=== PATIENT | male | born 1995 | race American Indian/Alaskan Native ===

== ENCOUNTER 2019-05-14 04:04 | Emergency (ER) | payer SELFPAY ==
--- NOTE | 2019-05-14 05:11 | Emergency Department Report ---
ED Abdominal Pain HPI - General Chief Complaint: Alcohol Stated Complaint: AMS/MH EVAL Time Seen by Provider: 05/14/19 05:02 Source: patient, family Mode of arrival: Stretcher Limitations: No Limitations - Related Data Allergies Allergy/AdvReac Type Severity Reaction Status Date / Time No Known Allergies Allergy Unverified 05/14/19 04:17 ED Review of Systems ROS: Stated complaint: AMS/MH EVAL Other details as noted in HPI ED Past Medical Hx - Past Medical History Previous Medical History?: Yes Hx Renal Disease: Yes (Nephrotic Syndrome) - Surgical History Past Surgical History?: No - Social History Smoking Status: Unknown if ever smoked Substance Use Type: Alcohol, Other ED Physical Exam - General Limitations: No Limitations ED Course Vital Signs 05/14/19 04:17 Temperature 98 F Pulse Rate 96 H Respiratory 18 Rate Blood Pressure 134/93 O2 Sat by Pulse 99 Oximetry Critical care attestation.: If time is entered above; I have spent that time in minutes in the direct care of this critically ill patient, excluding procedure time. ED Disposition Condition: Stable Referrals: WILDER MCKEON MD [Primary Care Provider] - 3-5 Days
--- NOTE | 2019-05-14 05:22 | Emergency Department Report ---
<DRAKE MANCERA - Last Filed: 05/14/19 05:40> ED Altered Mental Status HPI - General Chief Complaint: Alcohol Stated Complaint: AMS/MH EVAL Time Seen by Provider: 05/14/19 05:02 Source: patient, family Mode of arrival: Stretcher Limitations: No Limitations - History of Present Illness Initial Comments: Patient is a 23-year-old F [place] male who is presenting with altered mental status. According to a friend who called paramedics patient was drinking and taking Xanax which she is done before but he became more altered than normal. Patient presented with erratic behavior was altered from intoxication. No other information is noted at this time. - Related Data Previous Rx's Medication Instructions Recorded Last Taken Type Sertraline [Zoloft] 50 mg PO QDAY #30 tablet 05/15/19 Unknown Rx hydrOXYzine PAMOATE [Vistaril] 50 mg PO Q6H PRN #90 capsule 05/15/19 Unknown Rx Allergies Allergy/AdvReac Type Severity Reaction Status Date / Time No Known Allergies Allergy Verified 05/15/19 01:24 ED Review of Systems Comment: All other systems reviewed and negative ED Past Medical Hx - Past Medical History Previous Medical History?: Yes Hx Renal Disease: Yes (Nephrotic Syndrome) - Surgical History Past Surgical History?: No - Social History Smoking Status: Unknown if ever smoked Substance Use Type: Alcohol, Other - Medications Home Medications: Home Medications Medication Instructions Recorded Confirmed Last Taken Type Sertraline [Zoloft] 50 mg PO QDAY #30 tablet 05/15/19 Unknown Rx hydrOXYzine PAMOATE [Vistaril] 50 mg PO Q6H PRN #90 capsule 05/15/19 Unknown Rx ED Physical Exam - General Limitations: No Limitations General appearance: lethargic - Head Head exam: Present: atraumatic, normocephalic - Eye Eye exam: Present: normal appearance - ENT ENT exam: Present: mucous membranes moist - Neck Neck exam: Present: normal inspection - Respiratory Respiratory exam: Present: normal lung sounds bilaterally. Absent: respiratory distress, wheezes, rhonchi - Cardiovascular Cardiovascular Exam: Present: regular rate, normal rhythm, normal heart sounds. Absent: systolic murmur, diastolic murmur, rubs, gallop - GI/Abdominal GI/Abdominal exam: Present: soft, normal bowel sounds - Rectal Rectal exam: Present: deferred - Extremities Exam Extremities exam: Present: normal inspection - Back Exam Back exam: Present: normal inspection - Neurological Exam Neurological exam: Present: altered - Skin Skin exam: Present: warm, dry, intact, normal color. Absent: rash ED Course - Reevaluation(s) Reevaluation #1: 05/14/19 05:22 Was the patient fell asleep he was just minimally arousable with sternal rub. He would grab at my hand with sternal rub. Patient had a large amount of secretions in the back of his throat and his O2 sat dropped into the low 80s. Patient was suctioned and nasal trumpet was placed. O2 sat is 100% after these 2 maneuvers. 05/14/19 05:23 Accu-Chek is within normal limits Reevaluation #2: 05/14/19 05:40 Patient will be signed out to the oncoming ER physician to be monitored and the patient likely will be discharged after sobriety ED Disposition Clinical Impression: Benzodiazepine abuse Alcohol intoxication Qualifiers: Complication of substance-induced condition: with delirium Qualified Code(s): F10.921 - Alcohol use, unspecified with intoxication delirium Disposition: DC-01 TO HOME OR SELFCARE Condition: Fair Prescriptions: hydrOXYzine PAMOATE [Vistaril] 50 mg PO Q6H PRN #90 capsule PRN Reason: Anxiety Sertraline [Zoloft] 50 mg PO QDAY #30 tablet Referrals: WILDER MCKEON MD [Primary Care Provider] - 3-5 Days <CATALINO PATEL - Last Filed: 05/16/19 06:24> ED Review of Systems ROS: Stated complaint: AMS/MH EVAL Other details as noted in HPI ED Course Vital Signs 05/14/19 05/14/19 05/14/19 04:17 04:23 08:02 Temperature 98 F Pulse Rate 96 H 112 H Respiratory 18 20 16 Rate Blood Pressure 134/93 Blood Pressure 156/104 [Left] O2 Sat by Pulse 99 100 Oximetry 05/14/19 05/14/19 05/14/19 13:31 20:00 20:10 Temperature 98.0 F Pulse Rate 89 94 H Respiratory 16 18 18 Rate Blood Pressure Blood Pressure 137/83 126/91 [Left] O2 Sat by Pulse 99 98 98 Oximetry 05/14/19 05/15/19 05/15/19 20:14 01:55 10:34 Temperature 97.7 F 97.7 F 98.0 F Pulse Rate 77 87 88 Respiratory 16 18 16 Rate Blood Pressure Blood Pressure 112/70 129/87 125/96 [Left] O2 Sat by Pulse 95 100 98 Oximetry - Lab Data Result diagrams: 05/14/19 12:56 05/14/19 12:56 Lab Results 05/14/19 05/14/19 05/14/19 Range/Units 05:28 05:46 11:42 WBC (4.5-11.0) K/mm3 RBC (3.65-5.03) M/mm3 Hgb (11.8-15.2) gm/dl Hct (35.5-45.6) % MCV (84-94) fl MCH (28-32) pg MCHC (32-34) % RDW (13.2-15.2) % Plt Count (140-440) K/mm3 Lymph % (Auto) (13.4-35.0) % [place] % (Auto) (0.0-7.3) % Eos % (Auto) (0.0-4.3) % Baso % (Auto) (0.0-1.8) % Lymph # (1.2-5.4) K/mm3 [place] # (0.0-0.8) K/mm3 Eos # (0.0-0.4) K/mm3 Baso # (0.0-0.1) K/mm3 Seg Neutrophils % (40.0-70.0) % Seg Neutrophils # (1.8-7.7) K/mm3 Sodium (137-145) mmol/L Potassium (3.6-5.0) mmol/L Chloride (98-107) mmol/L Carbon Dioxide (22-30) mmol/L Anion Gap mmol/L BUN (9-20) mg/dL Creatinine (0.8-1.5) mg/dL Estimated GFR ml/min BUN/Creatinine Ratio % Glucose (75-100) mg/dL POC Glucose 122 H (70-105) Calcium (8.4-10.2) mg/dL Urine Color Straw (Yellow) Urine Turbidity Clear (Clear) Urine pH 5.0 (5.0-7.0) Ur Specific Gordon 1.009 (1.003-1.030) Urine Protein 30 mg/dl (Negative) mg/dL Urine Glucose (UA) Neg (Negative) mg/dL Urine Ketones Neg (Negative) mg/dL Urine Blood Sm (Negative) Urine Nitrite Neg (Negative) Urine Bilirubin Neg (Negative) Urine Urobilinogen < 2.0 (<2.0) mg/dL Ur Leukocyte Esterase Neg (Negative) Urine WBC (Auto) < 1.0 (0.0-6.0) /HPF Urine RBC (Auto) 9.0 (0.0-6.0) /HPF Uric Acid Crystals Few Urine Mucus Few /HPF Salicylates (2.8-20.0) mg/dL Urine Opiates Screen Urine Methadone Screen Acetaminophen (10.0-30.0) ug/mL Ur Barbiturates Screen Ur Phencyclidine Scrn Ur Amphetamines Screen U Benzodiazepines Scrn Urine Cocaine Screen U Marijuana (THC) Screen Drugs of Abuse Note Plasma/Serum Alcohol 0.24 H (0-0.07) % 05/14/19 05/14/19 05/14/19 Range/Units 12:56 12:56 12:56 WBC 6.3 (4.5-11.0) K/mm3 RBC 5.37 H (3.65-5.03) M/mm3 Hgb 16.1 H (11.8-15.2) gm/dl Hct 47.7 H (35.5-45.6) % MCV 89 (84-94) fl MCH 30 (28-32) pg MCHC 34 (32-34) % RDW 13.3 (13.2-15.2) % Plt Count 252 (140-440) K/mm3 Lymph % (Auto) 14.8 (13.4-35.0) % [place] % (Auto) 9.5 H (0.0-7.3) % Eos % (Auto) 0.2 (0.0-4.3) % Baso % (Auto) 0.2 (0.0-1.8) % Lymph # 0.9 L (1.2-5.4) K/mm3 [place] # 0.6 (0.0-0.8) K/mm3 Eos # 0.0 (0.0-0.4) K/mm3 Baso # 0.0 (0.0-0.1) K/mm3 Seg Neutrophils % 75.3 H (40.0-70.0) % Seg Neutrophils # 4.8 (1.8-7.7) K/mm3 Sodium 139 (137-145) mmol/L Potassium 5.5 H (3.6-5.0) mmol/L Chloride 100.5 (98-107) mmol/L Carbon Dioxide 24 (22-30) mmol/L Anion Gap 20 mmol/L BUN 7 L (9-20) mg/dL Creatinine 0.7 L (0.8-1.5) mg/dL Estimated GFR > 60 ml/min BUN/Creatinine Ratio 10 % Glucose 101 H (75-100) mg/dL POC Glucose (70-105) Calcium 9.1 (8.4-10.2) mg/dL Urine Color (Yellow) Urine Turbidity (Clear) Urine pH (5.0-7.0) Ur Specific Gordon (1.003-1.030) Urine Protein (Negative) mg/dL Urine Glucose (UA) (Negative) mg/dL Urine Ketones (Negative) mg/dL Urine Blood (Negative) Urine Nitrite (Negative) Urine Bilirubin (Negative) Urine Urobilinogen (<2.0) mg/dL Ur Leukocyte Esterase (Negative) Urine WBC (Auto) (0.0-6.0) /HPF Urine RBC (Auto) (0.0-6.0) /HPF Uric Acid Crystals Urine Mucus /HPF Salicylates < 0.3 L (2.8-20.0) mg/dL Urine Opiates Screen Urine Methadone Screen Acetaminophen (10.0-30.0) ug/mL Ur Barbiturates Screen Ur Phencyclidine Scrn Ur Amphetamines Screen U Benzodiazepines Scrn Urine Cocaine Screen U Marijuana (THC) Screen Drugs of Abuse Note Plasma/Serum Alcohol (0-0.07) % 05/14/19 05/14/19 Range/Units 12:56 Unknown WBC (4.5-11.0) K/mm3 RBC (3.65-5.03) M/mm3 Hgb (11.8-15.2) gm/dl Hct (35.5-45.6) % MCV (84-94) fl MCH (28-32) pg MCHC (32-34) % RDW (13.2-15.2) % Plt Count (140-440) K/mm3 Lymph % (Auto) (13.4-35.0) % [place] % (Auto) (0.0-7.3) % Eos % (Auto) (0.0-4.3) % Baso % (Auto) (0.0-1.8) % Lymph # (1.2-5.4) K/mm3 [place] # (0.0-0.8) K/mm3 Eos # (0.0-0.4) K/mm3 Baso # (0.0-0.1) K/mm3 Seg Neutrophils % (40.0-70.0) % Seg Neutrophils # (1.8-7.7) K/mm3 Sodium (137-145) mmol/L Potassium (3.6-5.0) mmol/L Chloride (98-107) mmol/L Carbon Dioxide (22-30) mmol/L Anion Gap mmol/L BUN (9-20) mg/dL Creatinine (0.8-1.5) mg/dL Estimated GFR ml/min BUN/Creatinine Ratio % Glucose (75-100) mg/dL POC Glucose (70-105) Calcium (8.4-10.2) mg/dL Urine Color (Yellow) Urine Turbidity (Clear) Urine pH (5.0-7.0) Ur Specific Gordon (1.003-1.030) Urine Protein (Negative) mg/dL Urine Glucose (UA) (Negative) mg/dL Urine Ketones (Negative) mg/dL Urine Blood (Negative) Urine Nitrite (Negative) Urine Bilirubin (Negative) Urine Urobilinogen (<2.0) mg/dL Ur Leukocyte Esterase (Negative) Urine WBC (Auto) (0.0-6.0) /HPF Urine RBC (Auto) (0.0-6.0) /HPF Uric Acid Crystals Urine Mucus /HPF Salicylates (2.8-20.0) mg/dL Urine Opiates Screen Presumptive negative Urine Methadone Screen Presumptive negative Acetaminophen < 5.0 L (10.0-30.0) ug/mL Ur Barbiturates Screen Presumptive negative Ur Phencyclidine Scrn Presumptive negative Ur Amphetamines Screen Presumptive negative U Benzodiazepines Scrn Presumptive positive Urine Cocaine Screen Presumptive negative U Marijuana (THC) Screen Presumptive negative Drugs of Abuse Note Disclamer Plasma/Serum Alcohol (0-0.07) % - Medical Decision Making This patient was signed out to me by the previous ER physician, my colleague, to follow-up on the patient's sobriety and assess for his ability for discharge. At this point the patient is awake, alert, and appears sober. However, the patient has spoken to his nurse, 1 of the ER techs, and then to myself, and has repeatedly said that he took the for Xanax and drank the alcohol last night because he wants to kill himself. When asked why he is feeling depressed or why he is feeling suicidal, the patient says "that is personal and I do not want to tell you." The patient says "I want to see a psychiatrist, I want to get some help." For this reason, the patient has been made a 1013. A consult for mental health assessment has been placed. The patient's blood alcohol level should be under the legal limit at this point and his urine drug screen was negative. The rest of his blood work has been ordered for medical clearance. Critical care attestation.: If time is entered above; I have spent that time in minutes in the direct care of this critically ill patient, excluding procedure time. ED Disposition Is pt being admited?: No
[2019-05-14 12:02] LABS: Bilirubin,Urine NEG (Negative); Blood,Urine SM (Negative); Color,Urine Straw (Yellow); Mucus,Urine FEW /HPF; Urobilinogen,Urine < 2.0 mg/dL (<2.0); WBC,Urine < 1.0 /HPF (0.0-6.0)
[2019-05-14 13:28] LABS: Basophils % (Auto) 0.2 % (0.0-1.8); Eosinophils % (Auto) 0.2 % (0.0-4.3); Hematocrit 47.7 % (35.5-45.6); Hemoglobin 16.1 gm/dl (11.8-15.2); Lymphocytes # (Auto) 0.9 K/mm3 (1.2-5.4); Lymphocytes % (Auto) 14.8 % (13.4-35.0); Mean Corpuscular HGB Conc 34 % (32-34); Mean Corpuscular Volume 89 fl (84-94); Monocytes # (Auto) 0.6 K/mm3 (0.0-0.8); Monocytes % (Auto) 9.5 % (0.0-7.3); Platelet Count 252 K/mm3 (140-440); Red Blood Count 5.37 M/mm3 (3.65-5.03); Red Cell Distribution Width 13.3 % (13.2-15.2)
[2019-05-14 13:44] LABS: BUN/Creatinine Ratio 10; Blood Urea Nitrogen 7 mg/dL (9-20); Calcium 9.1 mg/dL (8.4-10.2); Hemolysis Index 8
[2019-05-14] MEDS ORDERED: SODIUM POLYSTYRENE 15 GM/60 ML ORAL LIQD PO ONE (14:16)
[2019-05-14 14:42] LABS: Amphetamine Screen,Urine PRESUMPTIVE NEGATIVE; Cannabinoid Screen,Urine PRESUMPTIVE NEGATIVE; Cocaine Screen,Urine PRESUMPTIVE NEGATIVE; Methadone Screen,Urine PRESUMPTIVE NEGATIVE; Opiate Screen,Urine PRESUMPTIVE NEGATIVE
[2019-05-14 14:55] LABS: Benzodiazepines Screen,Urine PRESUMPTIVE POSITIVE
[2019-05-15] MEDS ORDERED: diphenhydrAMINE 25 MG CAP PO ONE ×2 (01:17)
[2019-05-15 10:36] VITALS: BP 125/96
--- NOTE | 2019-05-15 13:13 | Consultation ---
History of Present Illness - Reason for Consult Consult date: 05/15/19 Reason for consult: Psych eval - Chief Complaint Chief complaint: Anxious and depressed - History of Present Psychiatric Illness The patient is a 23yo single employed [employer] with history of Anxiety disorder. Per ED note, he presented with altered mental status. According to a friend who called paramedics patient was drinking and taking Xanax which he has done before but he became more altered than normal. Patient presented with erratic behavior was altered from intoxication. Psychiatry consult requested to evaluate and recommend disposition. In my interview with the patient, he reports feeling anxious, depressed and admits to self-medicate with Xanax plus/minus alcohol. He reports not sleeping well at night and his appetite is decreased. In the past he took Vistaril which he found beneficial for his anxiety. Patient denies panic attacks, recurrent nightmares or flashbacks. Patient denies symptoms suggestive of OCD or PTSD. Patient denies hallucinations, paranoia, thought interference and no features suggestive of hypomania or gerson. He completely denies suicidal or homicidal thoughts. He feels safe going home. PAST PSYCHIATRIC HISTORY: Diagnoses: Anxiety disorder Suicide attempts or Self-harm behavior: yes Prior psychiatric hospitalizations: no Substance Abuse history: Patient denies Previous psychiatric medications tried: Vistaril Outpatient treatment: no Family Psychiatric History None reported or documented SOCIAL HISTORY Marital Status: Single Living Arrangements: with brother Employment Status: employed Access to guns/weapons: Patient denies Education: high school History of Abuse: Patient denies Legal History: Patient denies ROS: Constitutional: Negative for weight loss ENT: Negative for stridor Respiratory: Negative for cough or hemoptysis All other systems reviewed and are negative MENTAL STATUS General Appearance and Behavior: age appropriate, good eye contact, cooperative with questioning and polite Cooperation: Cooperative Psychomotor Behavior: within normal limits Mood: OK Affect and affective range: Congruent with stated mood Thought Process: Fluent/Logical and Goal-directed Thought Content: Within reality Speech: Normal volume and Regular rate and rhythm Intellectual Functioning Average Suicidal Ideation: Denies SI Homicidal Ideation: Denies HI Impulse Control: intact Insight and Judgment: normal insight and judgment Memory: Normal Attention: Normal Orientation: alert and oriented Diagnoses Major depressive disorder, recurrent moderate episode Anxiety disorder, unspecified Alcohol and Benzodiazepine use disorder RECOMMENDATIONS MEDICATIONS: Zoloft 50mg qd for depression and Vistaril 50mg q6h prn anxiety Risks, benefits and alternatives of medications discussed with the patient, q uestions answered and consent obtained from patient. PSYCHOTHERAPY: Supportive psychotherapy provided MEDICAL: Per primary team OUTSOLE MOLDER: no DISPOSITION: Per primary team, no indication for acute inpatient psychiatric hospitalization at this time/Acute inpatient psychiatric hospitalization when medically stable LEGAL STATUS: 1013 rescinded FOLLOW-UP: Will sign off The patient agreed on the treatment plan, understood the risk, benefit, alternative treatment, potential consequence of no treatment, and gave informed consent. Please contact with any questions and/or concerns. Medications and Allergies Allergies Allergy/AdvReac Type Severity Reaction Status Date / Time No Known Allergies Allergy Verified 05/15/19 01:24 Home Medications Medication Instructions Recorded Confirmed Last Taken Type Sertraline [Zoloft] 50 mg PO QDAY #30 tablet 05/15/19 Unknown Rx hydrOXYzine PAMOATE [Vistaril] 50 mg PO Q6H PRN #90 capsule 05/15/19 Unknown Rx Mental Status Exam - Vital signs Last Vital Signs Temp 98.0 F 05/15/19 10:34 Pulse 88 05/15/19 10:34 Resp 16 05/15/19 10:34 BP 125/96 05/15/19 10:34 Pulse Ox 98 05/15/19 10:34 Results Result Diagrams: 05/14/19 12:56 05/14/19 12:56 Abnormal lab results 05/14/19 05/14/19 05/14/19 Range/Units 05:28 12:56 12:56 RBC 5.37 H (3.65-5.03) M/mm3 Hgb 16.1 H (11.8-15.2) gm/dl Hct 47.7 H (35.5-45.6) % [place] % (Auto) 9.5 H (0.0-7.3) % Lymph # 0.9 L (1.2-5.4) K/mm3 Seg Neutrophils % 75.3 H (40.0-70.0) % Potassium 5.5 H (3.6-5.0) mmol/L BUN 7 L (9-20) mg/dL Creatinine 0.7 L (0.8-1.5) mg/dL Glucose 101 H (75-100) mg/dL POC Glucose 122 H (70-105) Salicylates (2.8-20.0) mg/dL Acetaminophen (10.0-30.0) ug/mL 05/14/19 05/14/19 Range/Units 12:56 12:56 RBC (3.65-5.03) M/mm3 Hgb (11.8-15.2) gm/dl Hct (35.5-45.6) % [place] % (Auto) (0.0-7.3) % Lymph # (1.2-5.4) K/mm3 Seg Neutrophils % (40.0-70.0) % Potassium (3.6-5.0) mmol/L BUN (9-20) mg/dL Creatinine (0.8-1.5) mg/dL Glucose (75-100) mg/dL POC Glucose (70-105) Salicylates < 0.3 L (2.8-20.0) mg/dL Acetaminophen < 5.0 L (10.0-30.0) ug/mL All other labs normal.
[2019-05-15] MEDS ORDERED: SERTRALINE 50 MG TAB PO SCH (14:00)
== END 2019-05-15 15:00 | disposition home or self-care (01) ==
LOC: ED 04:04
DX: F33.1 Major depressive disorder, recurrent, moderate (principal); F41.9 Anxiety disorder, unspecified; R41.82 Altered mental status, unspecified; F13.10 Sedative, hypnotic or anxiolytic abuse, uncomplicated; F10.929 Alcohol use, unspecified with intoxication, unspecified; Z79.899 Other long term (current) drug therapy
CPT/HCPCS: 36415; 80048; 80307; 80320; 81001; 82962; 85025; 99284; G0480; Q0177